=== PATIENT | female | born 1960 | race Caucasian/White ===

== ENCOUNTER 2016-11-01 14:32 | Emergency (ER) | payer MEDICAID ==
[~2016-11-01] VITALS: Ht 162.6 cm; Wt 81.8 kg
[~2016-11-01 14:32] MED LIST: HYDR-906 PO; LORA-441 PO; ONDA4TAB8 PO
[2016-11-01 14:40] VITALS: Ht 162.6 cm; Wt 81.8 kg
[2016-11-01] MEDS ORDERED: morphine 4 MG/ML VIAL IV STA (21:02)
[2016-11-01] MEDS ORDERED: DIPHENHYDRAMINE 50 MG INJ IV ONE (21:30)
[2016-11-01] MEDS ORDERED: SOD CHLORIDE 0.9% 500 ML IV ONE (21:30)
[2016-11-01] MEDS ORDERED: METOCLOPRAMIDE 10 MG INJ IV ONE (21:30)
[2016-11-01 22:52] VITALS: BP 95/66; PULSE 74; RESP 18
[2016-11-01] MEDS ORDERED: NAPR-688 PO (23:12)
[2016-11-01] MEDS ORDERED: HYDR-906 PO (23:12)
[2016-11-01] MEDS ORDERED: METH500T PO (23:12)
--- NOTE | 2016-11-01 23:29 | ERD ---
ER Documentation Chief Complaint Date/Time DATE: 11/01/16 TIME: 23:15 Chief Complaint CP RADIATING TO LEFT BACK X 1 WEEK WITH N/V HPI This 56-year-old female comes emergency room for left back spasm is been going on a week. States that sometimes the pain is so bad she has nausea but has not vomited. She denies chest pain. She speaks English only and believes that this may have been a language barrier in triage. She denies any constipation, diarrhea fevers chills or shortness of breath. States that she believes she woke up with left lower back pain that is made worse by moving and walking. Is also worse when she touches that spot and pushes on it. ROS All systems reviewed and are negative except as per history of present illness. Medications Home Meds Active Scripts Naproxen* (Naproxen*) 500 Mg Tablet, 500 MG PO BID, #20 TAB Prov:ALISHA SMITH DO 11/01/16 Methocarbamol* (Robaxin*) 500 Mg Tab, 500 MG PO Q8, #20 TAB Prov:ALISHA SMITH DO 11/01/16 Hydrocodone/Acetaminophen ([place] 5-325 Tablet) 1 Each Tablet, 1 EACH PO Q6, #10 TAB Prov:ALISHA SMITH DO 11/01/16 Ondansetron Hcl* (Zofran*) 4 Mg Tablet, 4 MG PO Q8H Y for NAUSEA AND/OR VOMITING , #30 TAB Prov:JARVIS BRYAN 10/11/15 Discontinued Scripts Hydrocodone/Acetaminophen ([place] 5-325 Tablet) 1 Each Tablet, 1 TAB PO Q6H Y for PAIN, #20 TAB Prov:CHRIS ANDREWS DO 06/15/16 Lorazepam* (Ativan*) 0.5 Mg Tablet, 0.5 MG PO Q8H Y for ANXIETY, #10 TAB Prov:JARVIS BRYAN 10/11/15 Allergies Allergies: Coded Allergies: No Known Allergy (Unverified , 11/01/16) PMhx/Soc History of Surgery: Yes (Left ankle surgery 30+ years ago) Anesthesia Reaction: No Hx Neurological Disorder: No Hx Respiratory Disorders: No Hx Cardiac Disorders: Yes (Occasional tachycardia) Hx Psychiatric Problems: No Hx Miscellaneous Medical Probl: No Hx Alcohol Use: No Hx Substance Use: No Hx Tobacco Use: No Smoking Status: Unknown if ever smoked Physical Exam Vitals Vital Signs Date Time Temp Pulse Resp B/P Pulse Ox O2 Delivery O2 Flow Rate FiO2 11/01/16 22:52 74 18 95/66 100 Room Air 11/01/16 16:38 81 16 100/57 98 11/01/16 14:40 98.8 65 20 106/70 98 Physical Exam Const: [] No distress Head: Atraumatic Eyes: Normal Conjunctiva ENT: Normal External Ears, Nose and Mouth. Neck: Full range of motion..~ No meningismus. Resp: Clear to auscultation bilaterally Cardio: Regular rate and rhythm, no murmurs Abd: Soft, non tender, non distended. Normal bowel sounds Skin: No petechiae or rashes Back: No midline or flank tenderness, right paraspinal muscle spasm with tenderness to palpation about the L1 level. Patient also has pain at this spot on side bending. Ext: No cyanosis, or edema Neur: Awake and alert and oriented 3, no focal deficits Psych: Normal Mood and Affect Results 24 hrs Current Medications Medications (Trade) Dose Ordered Sig/Venancio Route PRN Reason Start Time Stop Time Status Last Admin Dose Admin Metoclopramide HCl (Reglan) 10 mg ONCE ONCE IV 11/01/16 21:30 11/01/16 21:31 DC 11/01/16 21:26 Diphenhydramine HCl 12.5 mg 12.5 mg ONCE ONCE IV 11/01/16 21:30 11/01/16 21:31 DC 11/01/16 21:26 Sodium Chloride (NS) 500 ml @ 500 mls/hr Q1H ONCE IV 11/01/16 21:30 11/01/16 22:29 DC 11/01/16 21:26 Morphine Sulfate (morphine) 4 mg ONCE STAT IV 11/01/16 21:02 11/01/16 21:05 DC 11/01/16 21:26 Procedures/MDM EKG interpretation: Normal sinus rhythm rate of 81, normal axis, no ST or T- wave changes concerning for acute ischemia 56-year-old with left paraspinal back muscle spasm. Physical exam consistent with musculoskeletal disease with obvious muscle spasm with tenderness. Patient denies any systemic symptoms and chest pain. She also is a nonischemic EKG. She is given a pain medicine, muscle relaxant combo with Benadryl, Reglan, morphine. She is also given a liter of IV fluids. This resolved her pain she was feeling much better and was asymptomatic in the emergency room. She is going home with a friend. I am giving her strict return precautions ER as well as instructions to follow-up with primary care doctor the next 2-3 days. I am discharging her with [place], Robaxin, naproxen. Departure Diagnosis: Primary Impression: Spasm of muscle, back Condition: Stable Patient Instructions: Back Spasm, No Trauma Referrals: [facility] YOU HAVE RECEIVED A MEDICAL SCREENING EXAM AND THE RESULTS INDICATE THAT YOU DO NOT HAVE A CONDITION THAT REQUIRES URGENT TREATMENT IN THE EMERGENCY DEPARTMENT. FURTHER EVALUATION AND TREATMENT OF YOUR CONDITION CAN WAIT UNTIL YOU ARE SEEN IN YOUR DOCTORS OFFICE WITHIN THE NEXT 1-2 DAYS. IT IS YOUR RESPONSIBILITY TO MAKE AN APPOINTMENT FOR FOLOW-UP CARE. IF YOU HAVE A PRIMARY DOCTOR --you should call your primary doctor and schedule an appointment IF YOU DO NOT HAVE A PRIMARY DOCTOR YOU CAN CALL OUR PHYSICIAN REFERRAL HOTLINE AT IF YOU CAN NOT AFFORD TO SEE A PHYSICIAN YOU CAN CHOSE FROM THE FOLLOWING [facility] [address] [facility]. [facility] [address] [facility] [facility] [address] [facility] [facility] [address] [facility]. [facility] [address] [facility]. [facility]. [address] Additional Instructions: Llame al doctor MAANA y miah saif JEFF PARA DENTRO DE 2-3 CHOI.Dgale a la secretaria que nosotros le instruimos hacer esta jeff.Avise o llame si doran condicin se empeora antes de la jeff. Regresa aqui si peor o no mejor. ALISHA SMITH DO Nov 01, 2016 23:27
== END 2016-11-01 23:24 | disposition home or self-care (01) ==
LOC: E/R 14:32
DX: M62.830 Muscle spasm of back (principal); R42 Dizziness and giddiness; R40.2252 Coma scale, best verbal response, oriented, at arrival to emergency department; R40.2142 Coma scale, eyes open, spontaneous, at arrival to emergency department; R40.2362 Coma scale, best motor response, obeys commands, at arrival to emergency department
CPT/HCPCS: 93005; 96374; 96375; J1200; J2270; J2765; J7040; Z7502

== ENCOUNTER 2018-02-16 16:32 | Emergency (ER) | END 2018-02-16 18:04 | disposition home or self-care (01) ==

== ENCOUNTER 2018-12-14 00:16 | Inpatient (IN) | payer MEDICAID ==
[2018-12-14] VITALS (29 sets, daily range): BP systolic 90–138; BP diastolic 64–97; PULSE 58–73; RESP 10–24; Ht 167.6 cm; Wt 69.7 kg
[~2018-12-14] VITALS: Ht 167.6 cm; Wt 69.7 kg
[~2018-12-14 00:16] MED LIST changes: +HYDR-4011 PO; -HYDR-906 PO; -LORA-441 PO; +METH500T PO; +NAPR-688 PO; +PANT40TA3 PO
[2018-12-14] MEDS ORDERED: IODIXANOL LOCM 100 ML BTL ONE (00:53)
[2018-12-14] MEDS ORDERED: SOD CHLORIDE 0.9% 100 ML ONE (00:53)
--- NOTE | 2018-12-14 01:28 | STROKE ---
Date/Time of Note Date/Time of Note DATE: 12/14/18 TIME: 00:57 Patient Information General Arrival Date Age 58 Gender female Weight 71.1 kg Vital Signs Vital Signs Vital Signs Date Temp Pulse Resp B/P (MAP) Pulse Ox O2 O2 Flow FiO2 Time Delivery Rate 12/14/18 98.7 72 19 165/111 100 Room Air 00:52 (129) Patient History Current Medications Allergies: Coded Allergies: No Known Allergy (Unverified , 11/01/16) History & Physical History of Present Illness 58yo woman consulted for acute facial droop. Onset 1030pm. Left face felt hot, associated with feeling drunk, lips dry. Looked at herself in the mirror and felt left side was weak. NIH Stroke Scale NIH Stroke Scale [id number] l4d LOC Questions: Ljutg7g LOC Commands: Wpbpv4b t Gaze: Lhdfc1z Tjuas5q alsy: Rtcoo0h or Arm - Left: Uxmxg9r ight: Srvxf0i eft: Mgkji5z t: Ynukn0c Fubvl4k Fvuhw3i est Language: Mtpyt7y suki: Mauwa8l Jidba4y 4Bd Total Score: Lqzgg9h Date/Time Recorded DATE: 12/14/18 TIME: 01:15 Submitted By Vania Lopez t-PA Imaging Review Imaging Reviewed: Yes Date/Time Imaging Reviewed DATE: 12/14/18 TIME: 01:05 Imaging Findings no acute process, no bleed t-PA Administration Recommendation: Yes Weight 71.1 kg t-PA Recommendation Date/Time 12/14/18, 1:21am Recommedation submitted by Vania Lopez Recommendations Recommendation NIHSS 3. Possible stroke. Discussed option of iv tPA to patient, indication to break up blood clot in suspected stroke, benefit of reduced disability, and risk of bleeding, including bleeding in the brain leading to possible . Patient elected to receive tPA and was able to express the indication, benefit, and risk of the medication. Rec to reaffirm contraindications for tPA with patient. If no contraindications, rec to administer tPA and follow post tPA protocol, including BP control, no antithrombotics for 24 hours, and 24-hr surveillance scan. Rec further stroke eval including MRI head, vessel imaging, tele, TTE, eval/mgmt of stroke risk factors, PT/OT/ST, fluids to help with perfusion. VANIA LOPEZ Dec 14, 2018 01:11
[2018-12-14] MEDS ORDERED: ALTEPLASE 100 MG INJ IV* ONE (01:30)
[2018-12-14] MEDS ORDERED: SOD CHLORIDE 0.9% 50 ML IV ONE (01:30)
[2018-12-14] MEDS ORDERED: ALTEPLASE (tPA) 1 MG/ML BOLUS SYG IV* ONE (01:30)
[2018-12-14] MEDS ORDERED: ACETAMINOPHEN 325 MG TAB PO PRN (02:30)
[2018-12-14] MEDS ORDERED: ALBUTEROL/IPRATROPIUM (NEB) 3 ML AMP NEB PRN (02:30)
[2018-12-14] MEDS: PANTOPRAZOLE (EC) 40 MG TAB PO SCH (05:38)
--- NOTE | 2018-12-14 06:21 | HP ---
Date/Time of Note Date/Time of Note DATE: 12/13/18 TIME: 23:00 Assessment/Plan VTE Prophylaxis Pharmacological prophylaxis: NA/contraindicated Pharm contraindication: other (Patient status post TPA.) Lines/Catheters [facility] [place] [facility] Assessment/Plan Assessment/Plan 1. Acute CVA: Status post TPA -ICU admission -Follow post TPA protocol -MRI of the brain -2D echo -Speech/swallow as well as PT eval -Neurology consult -Initiate aspirin and statin following post TPA protocol 2. Dyslipidemia: -See #1 Result Diagram: 12/14/18 0048 12/14/18 0048 Results 24hrs Laboratory Tests Test 12/14/18 00:48 12/14/18 02:42 White Blood Count 8.9 Red Blood Count 4.07 L Hemoglobin 12.2 Hematocrit 37.9 Mean Corpuscular Volume 93.1 Mean Corpuscular Hemoglobin 30.0 Mean Corpuscular Hemoglobin Concent 32.2 Red Cell Distribution Width 13.3 Platelet Count 258 Mean Platelet Volume 10.8 H Immature Granulocytes % 0.200 Neutrophils % 62.3 Lymphocytes % 27.5 Monocytes % 7.4 Eosinophils % 2.2 Basophils % 0.4 Nucleated Red Blood Cells % 0.0 Immature Granulocytes # 0.020 Neutrophils # 5.6 Lymphocytes # 2.5 Monocytes # 0.7 Eosinophils # 0.2 Basophils # 0.0 Nucleated Red Blood Cells # 0.0 Prothrombin Time 12.2 Prothrombin Time Ratio 1.0 INR International Normalized Ratio 0.89 Activated Partial Thromboplast Time 29.4 Sodium Level 140 Potassium Level 3.5 Chloride Level 106 Carbon Dioxide Level 25 Anion Gap 9 Blood Urea Nitrogen 12 Creatinine 0.94 Est Glomerular Filtrat Rate mL/min > 60 Glucose Level 112 Hemoglobin A1c 5.1 Calcium Level 9.5 Creatine Kinase 124 Creatine Kinase Index 0.4 Creatinine Kinase MB (Mass) 0.53 Troponin I < 0.012 Triglycerides Level 162 H Cholesterol Level 280 H LDL Cholesterol, Calculated 187 HDL Cholesterol 61 Cholesterol/HDL Ratio 4.5 Ethyl Alcohol Level < 10.0 H Urine Color STRAW Urine Clarity CLEAR Urine pH 7.0 Urine Specific [place] 1.035 H Urine Ketones NEGATIVE Urine Nitrite NEGATIVE Urine Bilirubin NEGATIVE Urine Urobilinogen NEGATIVE Urine Leukocyte Esterase TRACE A Urine Microscopic RBC 0 Urine Microscopic WBC 2 Urine Hemoglobin 1+ H Urine Glucose NEGATIVE Urine Total Protein NEGATIVE Urine Opiates Screen Negative Urine Barbiturates Negative Urine Amphetamines Screen Negative Urine Benzodiazepines Screen Negative Urine Cocaine Screen Negative Urine Cannabinoids Negative HPI/ROS Admit Date/Time Admit Date/Time Dec 14, 2018 at 02:03 Hx of Present Illness This is a 58-year-old female with history of dyslipidemia, depression/anxiety who was brought to the ER for facial droop, unsteady gait and weakness. Patient is now status post TPA after evaluated by the telemetry neurologist. Head CT and CT Angio without acute findings. Vitals within acceptable range. PMH/Family/Social Past Medical History Medical History: other (See HPI) Medications Current Medications Albuterol/ Ipratropium (Duoneb) 3 ml Q2H RESP THERAPY PRN NEB SHORTNESS OF BREATH; Start 12/14/18 at 02:30 Acetaminophen (Tylenol Tab) 650 mg Q6H PRN PO PAIN LEVEL 1-3 OR FEVER; Start 12/14/18 at 02:30 Atorvastatin Calcium (Lipitor) 40 mg QHS PO ; Start 12/14/18 at 21:00 Docusate Sodium (Colace) 100 mg BID PO ; Start 12/14/18 at 09:00 Pantoprazole (Protonix Tab) 40 mg DAILY@0600 PO Last administered on 12/14/18at 05:38; Admin Dose 40 MG; Start 12/14/18 at 06:00 Coded Allergies: No Known Allergy (Unverified , 11/01/16) Past Surgical History Past Surgical Hx: other (See HPI) Family History Significant Family History: no pertinent family hx Social History Alcohol Use: none Smoking Status: Never smoker Drug Use: none Exam/Review of Systems Vital Signs Vitals Vital Signs Date Temp Pulse Resp B/P (MAP) Pulse Ox O2 O2 Flow FiO2 Time Delivery Rate 12/14/18 62 16 115/66 Room Air 05:30 (82) 12/14/18 97.8 100 03:22 Exam Constitutional: other (No acute distress) Head: normocephalic, atraumatic Eyes: PERRL Respiratory: clear to auscultation, normal air movement Cardiovascular: regular rate and rhythm, nl pulses Gastrointestinal: soft Extremities: normal pulses Neurological: other (Slow when answering questions) QIANA ENNIS MD Dec 14, 2018 06:20
[2018-12-14] MEDS: DOCUSATE SODIUM 100 MG CAP PO SCH ×2 (09:00→20:41)
--- NOTE | 2018-12-14 09:17 | CONS ---
Assessment/Plan Assessment/Plan Hospital Course 58 F w/o obvious cerebrovascular risk factors..who presents for evaluation of left facial weakness/sensory loss. She additionally notes mild left leg involvement, with resultant gait impairment... The clinical picture is most ominously concerning for acute stroke... she is, thus, s/p iv tpa on 12/13 late pm.. Durham's palsy w/ appendicular somatization is additionally considered.. CTA H/N neg LDL 187 UDS neg P: Await MRI brain to evaluate for acute ischemia CT head in late pm to exclude interval hemorrhage; may subsequently initiate asa ppx as necessary, if hemorrhage is excluded. Agree w/ Lipitor 80mg hs for now.. Await echocardiogram ESR, RPR in am PT/OT/ST as necessary Other management per primary Will follow clinically Consultation Date/Type/Reason Admit Date/Time Dec 14, 2018 at 02:03 Type of Consult Neurology Reason for Consultation L facial weakness, numbness Requesting Provider: SAUL PAPPAS Date/Time of Note DATE: 12/14/18 TIME: 09:17 Hx of Present Illness Hx of Present Illness This is a 58-year-old female with history of dyslipidemia, depression/anxiety who was brought to the ER for facial droop, unsteady gait and weakness that started around 10:30pm last night. On arrival to the ED, a code stroke was called, the pt was evaluated by teleneuro and a decision made for thrombolytics. TPA was given around 1:30am . The patient is now status post TPA.... Head CT and CT Angio without acute findings. Vitals within acceptable range. The pt continues to endorse L face weakness with eye involvement. She additionally noted L arm and leg weakness. negative unless otherwise noted in HPI Exam/Review of Systems Exam Vitals Vital Signs Date Temp Pulse Resp B/P (MAP) Pulse Ox O2 O2 Flow FiO2 Time Delivery Rate 12/14/18 68 18 128/66 Room Air 06:30 (86) 12/14/18 97.8 100 03:22 Exam PE: Gen Appearance: No Apparent Distress HEENT: Normocephalic Cardiovascular: Regular rate Lungs: Clear bilaterally Abdomen: Soft Extremities: Dry NE: The patient was alert and oriented. Language was normal. Fund of knowledge was normal. Pupils were equal and reactive to light. There was no afferent pupillary defect. Visual kevin were normal. Funduscopic examination was limited. Extra-ocular movements were full. Slight ptosis was present in the L eye. There was no nystagmus. Facial sensation was diminished on the L. Face was asymmetric with normal strength. Hearing was intact. Palate movements were normal. Neck strength was normal. There was normal tongue bulk and speed of movement. Tone was normal. Muscle bulk was normal. I did not see fasciculations. L arm and leg were mildly weak. L leg drift was noted. Vibration sensation was normal was diminished on the L. Temperature and pinprick sensation was normal. Rapid alternating movements were normal. There was no dysmetria. There was no intention tremor. Gait was deferred due to bedrest. Arm and leg reflexes were 2+ and symmetric. Ward's sign was absent. Plantar responses were flexor. Results Result Diagram: 12/14/18 0048 12/14/18 0048 Results 24hrs Laboratory Tests Test 12/14/18 00:48 12/14/18 02:42 White Blood Count 8.9 Red Blood Count 4.07 L Hemoglobin 12.2 Hematocrit 37.9 Mean Corpuscular Volume 93.1 Mean Corpuscular Hemoglobin 30.0 Mean Corpuscular Hemoglobin Concent 32.2 Red Cell Distribution Width 13.3 Platelet Count 258 Mean Platelet Volume 10.8 H Immature Granulocytes % 0.200 Neutrophils % 62.3 Lymphocytes % 27.5 Monocytes % 7.4 Eosinophils % 2.2 Basophils % 0.4 Nucleated Red Blood Cells % 0.0 Immature Granulocytes # 0.020 Neutrophils # 5.6 Lymphocytes # 2.5 Monocytes # 0.7 Eosinophils # 0.2 Basophils # 0.0 Nucleated Red Blood Cells # 0.0 Prothrombin Time 12.2 Prothrombin Time Ratio 1.0 INR International Normalized Ratio 0.89 Activated Partial Thromboplast Time 29.4 Sodium Level 140 Potassium Level 3.5 Chloride Level 106 Carbon Dioxide Level 25 Anion Gap 9 Blood Urea Nitrogen 12 Creatinine 0.94 Est Glomerular Filtrat Rate mL/min > 60 Glucose Level 112 Hemoglobin A1c 5.1 Calcium Level 9.5 Creatine Kinase 124 Creatine Kinase Index 0.4 Creatinine Kinase MB (Mass) 0.53 Troponin I < 0.012 Triglycerides Level 162 H Cholesterol Level 280 H LDL Cholesterol, Calculated 187 HDL Cholesterol 61 Cholesterol/HDL Ratio 4.5 Ethyl Alcohol Level < 10.0 H Urine Color STRAW Urine Clarity CLEAR Urine pH 7.0 Urine Specific [place] 1.035 H Urine Ketones NEGATIVE Urine Nitrite NEGATIVE Urine Bilirubin NEGATIVE Urine Urobilinogen NEGATIVE Urine Leukocyte Esterase TRACE A Urine Microscopic RBC 0 Urine Microscopic WBC 2 Urine Hemoglobin 1+ H Urine Glucose NEGATIVE Urine Total Protein NEGATIVE Urine Opiates Screen Negative Urine Barbiturates Negative Urine Amphetamines Screen Negative Urine Benzodiazepines Screen Negative Urine Cocaine Screen Negative Urine Cannabinoids Negative Medications Medication Current Medications Albuterol/ Ipratropium (Duoneb) 3 ml Q2H RESP THERAPY PRN NEB SHORTNESS OF BREATH; Start 12/14/18 at 02:30 Acetaminophen (Tylenol Tab) 650 mg Q6H PRN PO PAIN LEVEL 1-3 OR FEVER; Start 12/14/18 at 02:30 Docusate Sodium (Colace) 100 mg BID PO ; Start 12/14/18 at 09:00 Pantoprazole (Protonix Tab) 40 mg DAILY@0600 PO Last administered on 12/14/18at 05:38; Admin Dose 40 MG; Start 12/14/18 at 06:00 Atorvastatin Calcium (Lipitor) 80 mg QHS PO ; Start 12/14/18 at 21:00 Past Medical History reviewed Medical History: other (See HPI) Home Meds Active Scripts Pantoprazole* (Protonix*) 40 Mg Tablet.dr, 40 MG PO DAILY, #20 TAB Prov:PHILOMENA HERRON MD 02/16/18 Naproxen* (Naproxen*) 500 Mg Tablet, 500 MG PO BID, #20 TAB Prov:ALISHA SMITH DO 11/01/16 Methocarbamol* (Robaxin*) 500 Mg Tab, 500 MG PO Q8, #20 TAB Prov:ALISHA SMITH DO 11/01/16 Hydrocodone/Acetaminophen ([place] 5-325 Tablet) 1 Each Tablet, 1 EACH PO Q6, #10 TAB Prov:ALISHA SMITH DO 11/01/16 Ondansetron Hcl* (Zofran*) 4 Mg Tablet, 4 MG PO Q8H PRN for NAUSEA AND/OR V OMITING, #30 TAB Prov:JARVIS BRYAN 10/11/15 Medications Current Medications Albuterol/ Ipratropium (Duoneb) 3 ml Q2H RESP THERAPY PRN NEB SHORTNESS OF B REATH; Start 12/14/18 at 02:30 Acetaminophen (Tylenol Tab) 650 mg Q6H PRN PO PAIN LEVEL 1-3 OR FEVER; Start 12/14/18 at 02:30 Docusate Sodium (Colace) 100 mg BID PO ; Start 12/14/18 at 09:00 Pantoprazole (Protonix Tab) 40 mg DAILY@0600 PO Last administered on 12/14/18at 05:38; Admin Dose 40 MG; Start 12/14/18 at 06:00 Atorvastatin Calcium (Lipitor) 80 mg QHS PO ; Start 12/14/18 at 21:00 Allergies: Coded Allergies: No Known Allergy (Unverified , 11/01/16) Past Surgical History reviewed Past Surgical Hx: other (See HPI) Social History reviewed Alcohol Use: none Smoking Status: Never smoker Drug Use: none CALLI SMITH NP Dec 14, 2018 09:17 CHUN BRUNSON Dec 14, 2018 12:27
--- NOTE | 2018-12-14 09:21 | PN ---
Date/Time of Note Date/Time of Note DATE: 12/14/18 TIME: 09:21 Objective Vitals Vital Signs Date Temp Pulse Resp B/P (MAP) Pulse Ox O2 O2 Flow FiO2 Time Delivery Rate 12/14/18 68 18 128/66 Room Air 06:30 (86) 12/14/18 97.8 100 03:22 Results Result Diagram: 12/14/18 0048 12/14/18 0048 Medications Medications Current Medications Albuterol/ Ipratropium (Duoneb) 3 ml Q2H RESP THERAPY PRN NEB SHORTNESS OF BREATH; Start 12/14/18 at 02:30 Acetaminophen (Tylenol Tab) 650 mg Q6H PRN PO PAIN LEVEL 1-3 OR FEVER; Start 12/14/18 at 02:30 Docusate Sodium (Colace) 100 mg BID PO ; Start 12/14/18 at 09:00 Pantoprazole (Protonix Tab) 40 mg DAILY@0600 PO Last administered on 12/14/18at 05:38; Admin Dose 40 MG; Start 12/14/18 at 06:00 Atorvastatin Calcium (Lipitor) 80 mg QHS PO ; Start 12/14/18 at 21:00 Lines/Catheters IV Catheter Type: [place] in Place: No Assessment/Plan Hospital Course Subjective Patient still having some minor residual issues however significant improvement and doing well. Objective Physical exam General: Patient is laying in bed and answers questions appropriately Mentation: Patient is alert and oriented 4, Head: Normocephalic atraumatic Eyes: EOMI, pupils reactive to light Neck: Supple, nontender, midline Respiratory: Clear to auscultation bilaterally Cardiovascular: regular rate, no obvious murmurs Gastrointestinal: non-tender to palpation, bowel sounds heard. Neurological: Moves all extremities spontaneously, left upper and left lower extremity is mildly weaker when compared to the right. Patient still experiencing mild numbness on the left upper and lower extremity. Left eye droop is very mild, and also very mild numbness on the left face. Skin: No new skin lesions Assessment and plan Left upper extremity and lower extremity weakness and numbness, left facial numbness -Possible CVA, now status post TPA -Neurology on board -MRI and repeat CT pending -Monitor for 24 hours for worsening mentation -Aspirin and statin following post TPA protocol when okay -Keep SBP less than 180 Dyslipidemia -Statin History of depression -Patient on sertraline before however has not been taking it recently, reinitiate at discharge Disposition -ICU monitoring for at least 24 hours, if stable, downgrade tomorrow. SAUL PAPPAS Dec 14, 2018 09:21
[2018-12-14] MEDS ORDERED: hydrALAzine 20 MG INJ IV PRN (09:30)
--- NOTE | 2018-12-14 13:55 | RADRPT ---
Echocardiogram Report Patient Name: CARLEEN MCNEILPatient ID: [id number] : 1960 (58y 4m)Study Date: 12/14/2018 7:57:42 AM Gender: FAccession #: [id number] Tech: [facility] Location: Ref.Physician: QIANA ENNIS Height(Cm): 168 BSA: 1.82Weight(Kg): 70.8 Quality: AdequateAccount #: Procedures: Echocardiographic Report: Transthoracic echocardiogram with complete 2D, M-Mode, and doppler examination. Indications: Cerebrovascular Accident. Measurements: 2D/M Mode Doppler Measurement Value Normal Range Measurement Value Normal Range LVIDd 2D 5.2 [ 3.8 - 5.2 ] cm AV Peak Asher 1.1 [ 100.0 - 170.0 ] cm/se c LVIDs 2D 2.8 [ 2.2 - 3.5 ] cm AV Peak PG 5.0 [ 2.0 - 9.0 ] mmHg LVPWd 2D 0.8 [ 0.6 - 0.9 ] cm LVOT Peak Asher 0.9 [ 70.0 - 110.0 ] cm/sec IVSd 2D 1.0 [ 0.6 - 0.9 ] cm LVOT Peak PG 3.0 [ 2.0 - 6.0 ] mmHg AoR Diam 2D 3.5 [ 2.3 - 3.1 ] cm MV E Peak Asher 0.6 [ 60.0 - 130.0 ] cm/sec EDV 2D 131.0 [ 46.0 - 106.0 ] ml MV A Peak Asher 0.8 [ 100.0 - 120.0 ] cm/se c ESV 2D 30.9 [ 14.0 - 42.0 ] ml MV E/A 0.7 [ 0.8 - 1.5 ] ratio EF 2D 76.4 [ 54.0 - 74.0 ] percent MV PHT 70.0 [ 20.0 - 100.0 ] msec LA Dimen 2D 3.9 [ 2.7 - 3.8 ] cm MV Decel Time 240 [ 104 - 258 ] msec MV Decel Hardy 3 Lat E` Saher 0.1 [ 10.0 - 15.0 ] cm/sec Lateral E/E` 7.6 [ 1.0 - 2.0 ] ratio Med E` Asher 0.1 cm/sec MV E/A 0.7 [ 0.8 - 1.5 ] ratio MVA PHT 3.1 [ 2.0 - 4.0 ] cm2 PV Peak Asher 0.9 [ 40.0 - 80.0 ] cm/sec PV Peak PG 3.0 mmHg Findings: Left Ventricle: Normal left ventricular systolic function. Normal left ventricular cavity size. Normal left ventricular wall thickness. Ejection fraction is visually estimated at 65 %. Tissue Doppler/Mitral Doppler indices are consistent with impaired relaxation (Stage I diastolic dysfunction). E/E'= 8. Right Ventricle: Normal right ventricular size. Normal right ventricular systolic function. Left Atrium: The left atrium is normal in size. Right Atrium: The right atrium is normal in size. Atrial Septum: Normal atrial septum. Mitral Valve: Normal appearance and function of the mitral valve with trace physiologic regurgitation. Aortic Valve: No significant aortic stenosis or insufficiency. Normal trileaflet aortic valve structure. Tricuspid Valve: Normal appearance and function of the tricuspid valve with trace physiologic regurgitation. Pulmonic Valve: Normal pulmonic valve appearance. Pericardium: Normal pericardium with no significant pericardial effusion. Aorta: Normal aortic root. IVC: Normal size and normal respiratory collapse consistent with normal right atrial pressure. Pulmonary Artery: Normal pulmonary artery size. Conclusions: Normal left ventricular systolic function. Normal left ventricular cavity size. Normal left ventricular wall thickness. Ejection fraction is visually estimated at 65 %. Tissue Doppler/Mitral Doppler indices are consistent with impaired relaxation (Stage I diastolic dysfunction). Normal right ventricular size. Normal right ventricular systolic function. Normal appearance and function of the mitral valve with trace physiologic regurgitation. No significant aortic stenosis or insufficiency. Normal trileaflet aortic valve structure. Normal appearance and function of the tricuspid valve with trace physiologic regurgitation. Normal pericardium with no significant pericardial effusion. Electronically Signed By: Fabien Lackey 2018-12-14 13:54:32 PDT
[2018-12-14] MEDS: ATORVASTATIN 80 MG TAB PO SCH (20:41)
[2018-12-14] MEDS ORDERED: ATORVASTATIN 10 MG TAB PO SCH (21:00)
[2018-12-15] VITALS (10 sets, daily range): BP systolic 97–119; BP diastolic 53–68; PULSE 52–75; RESP 17–19
[2018-12-15] MEDS: PANTOPRAZOLE (EC) 40 MG TAB PO SCH (06:07)
[2018-12-15] MEDS: DOCUSATE SODIUM 100 MG CAP PO SCH ×2 (09:00→20:06)
--- NOTE | 2018-12-15 11:12 | CONS ---
Assessment/Plan Assessment/Plan Hospital Course 58 F w/o obvious cerebrovascular risk factors..who presents for evaluation of left facial weakness/sensory loss. She additionally notes mild left leg involvement, with resultant gait impairment... She is s/p TPA on 12/14. 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 MRI brain is reassuringly without acute intracranial pathology. CTA H/N neg LDL 187 UDS neg P: Start Valtrex 1g BID and prednisone 60mg daily Protonix for GI ppx while on prednisone PT/OT/ST as necessary Other management per primary Will follow clinically Consultation Date/Type/Reason Admit Date/Time Dec 14, 2018 at 02:03 Type of Consult Neurology Reason for Consultation L facial weakness, numbness Requesting Provider: SAUL PAPPAS Date/Time of Note DATE: 12/15/18 TIME: 11:12 24 HR Interval Summary Free Text/Dictation Continues acute care. S/p MRI. Pt still has c/o L facial weakness. Exam Vital Signs Vitals Vital Signs Date Temp Pulse Resp B/P (MAP) Pulse Ox O2 O2 Flow FiO2 Time Delivery Rate 12/15/18 57 08:00 12/15/18 97.8 19 119/66 96 07:39 (83) 12/14/18 Room Air 23:37 Intake and Output 12/14/18 12/14/18 12/15/18 1515:00 23:00 07:00 IntakeIntake Total 600 ml 200 ml BalanceBalance 600 ml 200 ml Exam PE: Gen Appearance: No Apparent Distress HEENT: Normocephalic Cardiovascular: Regular rate Lungs: Clear bilaterally Abdomen: Soft Extremities: Dry NE: The patient was alert and oriented. Language was normal. Fund of knowledge was normal. Pupils were equal and reactive to light. There was no afferent pupillary defect. Visual kevin were normal. Funduscopic examination was limited. Extra-ocular movements were full. Slight ptosis was present in the L eye. There was no nystagmus. Facial sensation was normal. Face was asymmetric with normal strength. Hearing was intact. Palate movements were normal. Neck strength was normal. There was normal tongue bulk and speed of movement. Tone was normal. Muscle bulk was normal. I did not see fasciculations. The pt was mildly weak in the LLE. Vibration sensation was normal was diminished on the L. Temperature and pinprick sensation was normal. Rapid alternating movements were normal. There was no dysmetria. There was no intention tremor. Gait was deferred due to bedrest. Arm and leg reflexes were 2+ and symmetric. Ward's sign was absent. Plantar responses were flexor. CALLI SMITH NP Dec 15, 2018 11:12 CHUN BRUNSON Dec 16, 2018 06:53
[2018-12-15] MEDS: predniSONE 20 MG TAB PO SCH (11:48)
[2018-12-15] MEDS: valACYclovir 500 MG TAB PO SCH ×2 (13:20→20:06)
--- NOTE | 2018-12-15 14:38 | PN ---
Date/Time of Note Date/Time of Note DATE: 12/15/18 TIME: 14:35 Objective Vitals Vital Signs Date Temp Pulse Resp B/P (MAP) Pulse Ox O2 O2 Flow FiO2 Time Delivery Rate 12/15/18 68 12:00 12/15/18 97.8 17 104/55 95 11:45 (71) 12/14/18 Room Air 23:37 Intake and Output 12/14/18 12/14/18 12/15/18 1515:00 23:00 07:00 IntakeIntake Total 600 ml 200 ml BalanceBalance 600 ml 200 ml Results Result Diagram: 12/15/1851612/15/18516 Medications Medications Current Medications Albuterol/ Ipratropium (Duoneb) 3 ml Q2H RESP THERAPY PRN NEB SHORTNESS OF BREATH; Start 12/14/18 at 02:30 Acetaminophen (Tylenol Tab) 650 mg Q6H PRN PO PAIN LEVEL 1-3 OR FEVER; Start 12/14/18 at 02:30 Docusate Sodium (Colace) 100 mg BID PO Last administered on 12/14/18at 20:41; Admin Dose 100 MG; Start 12/14/18 at 09:00 Pantoprazole (Protonix Tab) 40 mg DAILY@0600 PO Last administered on 12/15/18at 06:07; Admin Dose 40 MG; Start 12/14/18 at 06:00 Atorvastatin Calcium (Lipitor) 80 mg QHS PO Last administered on 12/14/18at 20:41; Admin Dose 80 MG; Start 12/14/18 at 21:00 Hydralazine HCl (Apresoline) 10 mg Q4H PRN IV sbp >160; Start 12/14/18 at 09:30 Valacyclovir HCl (Valtrex) 1,000 mg BID PO Last administered on 12/15/18at 13:20; Admin Dose 1,000 MG; Start 12/15/18 at 12:30 Prednisone (Prednisone) 60 mg DAILY PO Last administered on 12/15/18at 11:48; Admin Dose 60 MG; Start 12/15/18 at 11:30 VTE Prophylaxis Risk score (from Ns)>0 risk: 1 SCD applied (from Ns): No SCD contraindication: other Lines/Catheters IV Catheter Type: [place] in Place: No Assessment/Plan Hospital Course Subjective Patient still having some minor residual issues however significant improvement and doing well. Objective Physical exam General: Patient is laying in bed and answers questions appropriately Mentation: Patient is alert and oriented 4, Head: Normocephalic atraumatic Eyes: EOMI, pupils reactive to light, mild difficulty with closing the left eye Neck: Supple, nontender, midline Respiratory: Clear to auscultation bilaterally Cardiovascular: regular rate, no obvious murmurs Gastrointestinal: non-tender to palpation, bowel sounds heard. Neurological: Moves all extremities spontaneously, left upper and left lower extremity is mildly weaker when compared to the right. Patient still experiencing mild numbness on the left upper and lower extremity. Left eye droop is very mild, and also very mild numbness on the left face. 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
--- NOTE | 2018-12-15 16:54 | ERD ---
ER Documentation Chief Complaint Chief Complaint weakness, hesitant speech HPI The patient is a 58-year-old female, presenting to the ER because of slurred speech, generalized weakness. The history is limited due to language barrier, denies headache, blurred vision, neck pain, chest pain, dyspnea, abdominal pain, vomiting, dizzy, diarrhea. She does not smoke nor drink Past medical/surgical history: None ROS All systems reviewed and are negative except as per history of present illness. Medications Home Meds Active Scripts Pantoprazole* (Protonix*) 40 Mg Tablet.dr, 40 MG PO DAILY, #20 TAB Prov:PHILOMENA HERRON MD 02/16/18 Naproxen* (Naproxen*) 500 Mg Tablet, 500 MG PO BID, #20 TAB Prov:ALISHA SMITH DO 11/01/16 Methocarbamol* (Robaxin*) 500 Mg Tab, 500 MG PO Q8, #20 TAB Prov:ALISHA SMITH DO 11/01/16 Hydrocodone/Acetaminophen ([place] 5-325 Tablet) 1 Each Tablet, 1 EACH PO Q6, #10 TAB Prov:ALISHA SMITH DO 11/01/16 Ondansetron Hcl* (Zofran*) 4 Mg Tablet, 4 MG PO Q8H PRN for NAUSEA AND/OR VOMITING, #30 TAB Prov:JARVIS BRYAN 10/11/15 Allergies Allergies: Coded Allergies: No Known Allergy (Unverified , 11/01/16) PMhx/Soc History of Surgery: Yes (History of ankle surgery 10 years ago) Anesthesia Reaction: No Hx Neurological Disorder: No Hx Respiratory Disorders: No Hx Cardiac Disorders: No Hx Psychiatric Problems: No Hx Miscellaneous Medical Probl: Yes (See note) Hx Alcohol Use: Yes Hx Substance Use: No (former cocaine use) Hx Tobacco Use: No Smoking Status: Never smoker Physical Exam Vitals Vital Signs Date Temp Pulse Resp B/P (MAP) Pulse Ox O2 O2 Flow FiO2 Time Delivery Rate 12/14/18 64 18 127/78 98 01:51 (94) 12/14/18 64 18 127/78 98 Room Air 01:51 (94) 12/14/18 70 17 135/79 99 01:36 (97) 12/14/18 70 17 135/79 99 Room Air 01:36 (97) 12/14/18 65 16 133/77 100 Room Air 01:30 (95) 12/14/18 98.7 72 19 165/111 100 Room Air 00:52 (129) 12/14/18 98.7 70 19 135/77 100 00:47 (96) 12/14/18 Nasal 00:40 Cannula Physical Exam Const: No acute distress. Head: Atraumatic. Eyes: Normal Conjunctiva. ENT: Normal External Ears, Nose and Mouth. Neck: Full range of motion. No meningismus. Resp: Clear to auscultation bilaterally. Cardio: Regular rate and rhythm. Abd: Soft, non distended, normal bowel sounds, non tender. Skin: No petechiae or rashes. Back: No midline or flank tenderness. Ext: No cyanosis, or edema. Neur: Awake and alert. No focal deficit, ?slurred speech Psych: Normal Mood and Affect. Result Diagram: 12/15/1851612/15/18516 Results 24 hrs Laboratory Tests Test 12/14/18 00:48 White Blood Count 8.9 10^3/ul Red Blood Count 4.07 10^6/ul Hemoglobin 12.2 g/dl Hematocrit 37.9 % Mean Corpuscular Volume 93.1 fl Mean Corpuscular Hemoglobin 30.0 pg Mean Corpuscular Hemoglobin Concent 32.2 g/dl Red Cell Distribution Width 13.3 % Platelet Count 258 10^3/UL Mean Platelet Volume 10.8 fl Immature Granulocytes % 0.200 % Neutrophils % 62.3 % Lymphocytes % 27.5 % Monocytes % 7.4 % Eosinophils % 2.2 % Basophils % 0.4 % Nucleated Red Blood Cells % 0.0 /100WBC Immature Granulocytes # 0.020 10^3/ul Neutrophils # 5.6 10^3/ul Lymphocytes # 2.5 10^3/ul Monocytes # 0.7 10^3/ul Eosinophils # 0.2 10^3/ul Basophils # 0.0 10^3/ul Nucleated Red Blood Cells # 0.0 10^3/ul Prothrombin Time 12.2 Sec Prothrombin Time Ratio 1.0 INR International Normalized Ratio 0.89 Activated Partial Thromboplast Time 29.4 Sec Sodium Level 140 mmol/L Potassium Level 3.5 mmol/L Chloride Level 106 mmol/L Carbon Dioxide Level 25 mmol/L Anion Gap 9 Blood Urea Nitrogen 12 mg/dl Creatinine 0.94 mg/dl Est Glomerular Filtrat Rate mL/min > 60 mL/min Glucose Level 112 mg/dl Hemoglobin A1c 5.1 % Calcium Level 9.5 mg/dl Creatine Kinase 124 IU/L Creatine Kinase Index 0.4 Creatinine Kinase MB (Mass) 0.53 ng/ml Troponin I < 0.012 ng/ml Triglycerides Level 162 mg/dl Cholesterol Level 280 mg/dl LDL Cholesterol, Calculated 187 mg/dl HDL Cholesterol 61 mg/dl Cholesterol/HDL Ratio 4.5 RATIO Ethyl Alcohol Level < 10.0 mg/dl Current Medications Medications Dose Sig/Venancio Start Time Status Last (Trade) Ordered Route PRN Stop Time Admin Dose Reason Admin Alteplase, 6.4 mg BOLUS OVER 1 12/14/18 DC 12/14/18 Recombinant MIN ONCE 01:30 01:36 (Activase) IV* 12/14/18 01:31 Alteplase, 57.6 mg ISCHEMIC 12/14/18 DC 12/14/18 Recombinant STROKE ONCE 01:30 01:38 (Activase) IV* 12/14/18 01:31 Sodium 50 ml @ 0 FLUSH AFTER 12/14/18 DC 12/14/18 Chloride mls/hr TPA ONCE IV 01:30 02:39 12/14/18 01:31 Procedures/[place] [id number] Radiology Main Line: [phone] DIAGNOSTIC IMAGING REPORT Patient: CARLEEN MCNEIL : 1960 Age: 58 Sex: F MR #: [id number] DOS: 12/14/18 0049 Ordering MD: KAYE GILL MD Location: E/R Room/Bed: PROCEDURE: CT HEAD WITHOUT CONTRAST CLINICAL INDICATION: 58-year of age, female. Stroke Code TECHNIQUE: CT of the head was performed without IV contrast. Coronal and sagittal reformatted images were obtained from the axial source images. Images were reviewed on a high-resolution PACS workstation. DICOM images are available. Dose information: The estimated radiation dose (CTDIvol mGy) for each series in this exam is 40. The estimated cumulative dose (DLP mGy-cm) is 634. One or more of the following dose reduction techniques were used: - Automated exposure control. - Adjustment of the mA and/or kV according to patient size. - Use of iterative reconstruction technique. COMPARISON: None available. FINDINGS: BRAIN PARENCHYMA: Negative for evidence of acute intraparenchymal hemorrhage, mass effect or large territory infarct. Motley-white matter differentiation is maintained. Mild diffuse cerebral tissue loss. VENTRICLES AND EXTRA-AXIAL SPACES: Prominence of the ventricles proportionate to the sulci in keeping with cerebral tissue loss. Midline is central. Basal cisterns are normal. No abnormal extra-axial fluid collections are identified. Negative for evidence of acute subarachnoid or extra-axial hemorrhage. There are scattered calcifications in the sulci over the cerebral convexities likely from chronic infection. VASCULATURE: Negative for significant intracranial atherosclerosis. VISUALIZED PARANASAL SINUSES AND MASTOID AIR CELLS: Visualized paranasal sinuses: Clear where visualized. Mastoid air cells: Clear. BONES: No focal abnormality. SCALP: No significant abnormality. Additional comment: None. IMPRESSION: 1. Negative for evidence of acute intracranial hemorrhage or significant mass effect. Negative for CT evidence of acute large territory vascular infarct. If there is concern for recent ischemia, consider MRI brain for further evaluation. 2. Scattered calcifications in the sulci over the cerebral convexities is likely due to chronic infection. Findings were discussed with Dr Gill by Dr. Fidelina Whittington on December 14, 2018 at 1:06 am PST. RPTAT: HCTS Physician Dm Date Time Electronically viewed and signed by Alejandro Whittington Physician on 12/14/2018 01:06 CS/ CC: KAYE GILL MD [id number] [place] [id number] Radiology Main Line: [phone] DIAGNOSTIC IMAGING REPORT Patient: CARLEEN MCNEIL : 1960 Age: 58 Sex: F MR #: [id number] DOS: 12/14/18 0049 Ordering MD: KAYE GILL MD Location: E/R Room/Bed: PROCEDURE: Portable chest x-ray. CLINICAL INDICATION: 58 years of age, female. Possible stroke TECHNIQUE: Portable AP view of the chest. COMPARISON: None available. FINDINGS: Medical devices: None. Mediastinum: Cardiomediastinal contours are normal. Lungs: Lungs are clear. Pleura: Negative for pleural effusion or pneumothorax. Bones: No acute bony abnormality. Additional comment: None. IMPRESSION: Negative for evidence of an acute chest process. RPTAT: HCTS Physician Dm Date Time Electronically viewed and signed by Alejandro Whittington Physician on 12/14/2018 01:40 CS/ CC: KAYE GILL MD [id number] [place] [id number] Radiology Main Line: [phone] DIAGNOSTIC IMAGING REPORT Patient: CARLEEN MCNEIL : 1960 Age: 58 Sex: F MR #: [id number] DOS: 12/14/18 0049 Ordering MD: KAYE GILL MD Location: E/R Room/Bed: PROCEDURE: CT ANGIOGRAM HEAD AND NECK CLINICAL INDICATION: 58 years of age, female. Stroke symptoms. TECHNIQUE: Direct spiral 0.63 mm axial sections were obtained through the cervical and intracranial vasculature with the use of 98 mL of Visipaque 320. Coronal and sagittal reformatted images were obtained from the axial source images. Images were reviewed on a high-resolution PACS workstation. 3-D post processing was performed. Maximum intensity projection images were reconstructed on PACS. DICOM images are available. CTDIvol: 18 and 16 mGy. DLP: 596 mGy-cm. One or more of the following dose reduction techniques were used: - Automated exposure control. - Adjustment of the mA and/or kV according to patient size. - Use of iterative reconstruction technique. COMPARISON: Brain CT performed earlier on the same date FINDINGS: CTA NECK/ EXTRACRANIAL ANGIOGRAM: Proximal great vessels: Normal cervical branching. No flow-limiting stenosis or dissection. No aneurysm. Cervical vessels: Right carotid artery: No flow-limiting stenosis or dissection. No aneurysm. Left carotid artery: No flow-limiting stenosis or dissection. No aneurysm. Right vertebral artery: No flow-limiting stenosis or dissection. No aneurysm. Left vertebral artery: No flow-limiting stenosis or dissection. No aneurysm. Additional comment: None. CTA HEAD/ INTRACRANIAL ANGIOGRAM: Anterior circulation: Right: No flow-limiting stenosis or aneurysm is identified. No vascular malformation is identified. Left: No flow-limiting stenosis or aneurysm is identified. No vascular malformation is identified. Posterior circulation: No flow-limiting stenosis or aneurysm is identified. No vascular malformation is identified. [place]: Anterior communicating artery and right posterior communicating artery are patent. Left posterior communicating artery is not visualized. Dural venous sinuses: Patent. Additional comment: None. BRAIN (POST-CONTRAST): Enhancement: No abnormal intraparenchymal enhancement. SOFT TISSUE NECK: Soft tissues: Unremarkable. Lung apices: Unremarkable. Bones: Unremarkable. Additional comment: None. IMPRESSION: 1. Negative for evidence of hemodynamically significant stenosis or occlusion of the major cervical and intracranial arteries. 2. Negative for evidence of dissection, aneurysm, or vascular malformation. 3. Negative for abnormal intraparenchymal enhancement. If there is concern for recent ischemia, consider brain MRI for further evaluation. A call is in place to Dr Gill by Dr. Fidelina Whittington on December 14, 2018 at 1:40 am PST. Measurements of cervical internal carotid artery stenosis were performed according to NASCET criteria. Direct measurements of vessel diameters was made in reference to measurements of the distal internal carotid artery diameter. RPTAT: HCTS Physician Dm Date Time Electronically viewed and signed by Physician Dm on 12/14/2018 01:38 CS/ CC: KAYE GILL MD [id number] EKG: Read by emergency physician Rate/Rhythm: Normal Sinus Rhythm 66 beats/min QRS, ST, T-waves: No ST elevation, no T inversion, RWA Impression: Abnormal EKG MEDICAL MAKING DECISION: The patient is a 58-year-old female, presenting with possible acute stroke, evaluated by neurologist who recommended TPA The differential diagnoses considered include but are not limited to acute stroke, acute TIA, complex migraine Departure Diagnosis: Primary Impression: Stroke Condition: Critical Comments I discussed the findings with the patient. I discussed the patient with Dr Mallory at 2am , who was made aware of the lab, the treatment, the patient condition. The patient is admitted to icu Disclaimer: Inadvertent spelling and grammatical errors are likely due to EHR/dictation software use and do not reflect on the overall quality of patient care. Also, please note that the electronic time recorded on this note does not necessarily reflect the actual time of the patient encounter. KAYE GILL MD Dec 15, 2018 16:54
[2018-12-15] MEDS: ATORVASTATIN 80 MG TAB PO SCH (20:06)
[2018-12-15] MEDS ORDERED: ZOLPIDEM 5 MG TAB PO ONE (22:30)
[2018-12-16 00:18] VITALS: BP 98/55; PULSE 84; RESP 20
[2018-12-16 04:07] VITALS: BP 101/59; PULSE 65; RESP 18
[2018-12-16] MEDS: PANTOPRAZOLE (EC) 40 MG TAB PO SCH (05:55)
[2018-12-16 07:42] VITALS: BP 104/70; PULSE 88; RESP 20
[2018-12-16] MEDS: DOCUSATE SODIUM 100 MG CAP PO SCH (08:14)
[2018-12-16] MEDS: predniSONE 20 MG TAB PO SCH (08:14)
[2018-12-16] MEDS: valACYclovir 500 MG TAB PO SCH (08:28)
--- NOTE | 2018-12-16 10:10 | DS ---
Date/Time of Note Date/Time of Note DATE: 12/16/18 TIME: 10:10 Discharge Summary Admission/Discharge Info Admit Date/Time Dec 14, 2018 at 02:03 Discharge Date/Time Patient Condition: Stable Hospital Course Patient is a female with no significant past medical history except for history of depression who presents to [facility] for left-side d weakness and numbness and left facial numbness. Patient originally was code stroke was seen by tele-neurologist and given TPA for strokelike symptoms. Patient subsequently saw neurology in the inpatient setting. Patient had CT and MRI done both not showing signs of stroke, however patient did persist to have signs of Durham palsy. Neurology concluded that a acute CVA was very unlikely and patient likely suffered from Durham palsy with appendicular somatizations. They started prednisone as well as antiviral and did not recommend aspirin or statin on discharge. Of note patient's cholesterol was elevated on admission however with the cardiovascular risk calculator the 10-year risk calculated was 2.4%. According to this 10-year risk of heart disease or stroke, the [place] task force percentage is under 10% and does not suggest benefit from starting aspirin and the ACC AHA guidelines suggest that her risk of heart disease is less than 7.5% and suggests that she does not have any indication to be on a statin. However her since her LDL is elevated it was suggested that she modify her diet and increase the level of exercise and to follow-up with her primary care doctor within 2 weeks to get follow-up for her Durham palsy and to repeat her cholesterol levels within 2-3 months after significant changes to diet and exercise. Patient feeling well, was seen by PT, no DME needs, patient will be discharged with appropriate prescriptions. 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 Left-sided numbness, secondary to above Durham palsy, resolved Dyslipidemia History of depression, not on any medication Home Meds Active Scripts Pantoprazole* (Protonix*) 40 Mg Tablet., 40 MG PO DAILY, #20 TAB Prov:PHILOMENA HERRON MD 02/16/18 Naproxen* (Naproxen*) 500 Mg Tablet, 500 MG PO BID, #20 TAB Prov:ALISHA SMITH DO 11/01/16 Methocarbamol* (Robaxin*) 500 Mg Tab, 500 MG PO Q8, #20 TAB Prov:ALISHA SMITH DO 11/01/16 Hydrocodone/Acetaminophen ([place] 5-325 Tablet) 1 Each Tablet, 1 EACH PO Q6, #10 TAB Prov:ALISHA SMITH DO 11/01/16 Ondansetron Hcl* (Zofran*) 4 Mg Tablet, 4 MG PO Q8H PRN for NAUSEA AND/OR VOMITING, #30 TAB Prov:JARVIS BRYAN 10/11/15 Primary Care Provider Care Physician No Primary Time spent on discharge: > 30 minutes Pending Labs Laboratory Tests Test 12/16/18 04:54 White Blood Count 12.4 10^3/ul (4.8-10.8) Red Blood Count 3.94 10^6/ul (4.20-5.40) Hemoglobin 12.3 g/dl (12.0-16.0) Hematocrit 36.8 % (37.0-47.0) Mean Corpuscular Volume 93.4 fl (82.0-101.0) Mean Corpuscular Hemoglobin 31.2 pg (29.0-33.0) Mean Corpuscular Hemoglobin Concent 33.4 g/dl (32.0-37.0) Red Cell Distribution Width 13.2 % (11.5-14.5) Platelet Count 259 10^3/UL (140-415) Mean Platelet Volume 11.1 fl (7.4-10.4) Immature Granulocytes % 0.300 % (0.001-0.429) Neutrophils % 79.7 % (39.0-77.0) Lymphocytes % 14.4 % (15.0-51.0) Monocytes % 5.0 % (0.0-11.0) Eosinophils % 0.4 % (0.0-7.0) Basophils % 0.2 % (0.0-2.0) Nucleated Red Blood Cells % 0.0 /100WBC (0.0-0.0) Immature Granulocytes # 0.040 10^3/ul (0.0-0.031) Neutrophils # 9.9 10^3/ul (1.6-7.5) Lymphocytes # 1.8 10^3/ul (0.8-2.9) Monocytes # 0.6 10^3/ul (0.3-0.9) Eosinophils # 0.1 10^3/ul (0.0-0.5) Basophils # 0.0 10^3/ul (0.0-0.1) Nucleated Red Blood Cells # 0.0 10^3/ul (0.0-0.0) Sodium Level 140 mmol/L (135-144) Potassium Level 3.6 mmol/L (3.5-5.1) Chloride Level 105 mmol/L (97-110) Carbon Dioxide Level 24 mmol/L (21-31) Anion Gap 11 (5-13) Blood Urea Nitrogen 17 mg/dl (7-20) Creatinine 0.74 mg/dl (0.44-1.00) Est Glomerular Filtrat Rate mL/min > 60 mL/min (>60) Glucose Level 150 mg/dl (70-220) Calcium Level 9.7 mg/dl (8.4-10.2) Phosphorus Level 4.2 mg/dl (2.5-4.9) Magnesium Level 2.1 mg/dl (1.7-2.5) SAUL PAPPAS Dec 16, 2018 10:10
[2018-12-16] MEDS ORDERED: PANT40TA3 PO (10:19)
[2018-12-16] MEDS ORDERED: PRED20TA PO (10:19)
[2018-12-16] MEDS ORDERED: VALA500T PO (10:19)
--- NOTE | 2018-12-16 10:23 | PDOCDIS ---
Discharge Instructions CONDITION [id number] Patient Condition: [id number] Stable FOLLOW UP/APPOINTMENTS Follow-up Plan 1. Please follow up with your primary care doctor within 2 weeks 2. Please take all medications 3. Please return to the ED if you have your symptoms return. SAUL PAPPAS Dec 16, 2018 10:23
--- NOTE | 2018-12-16 11:20 | CONS ---
Assessment/Plan Assessment/Plan Hospital Course 58 F w/o obvious cerebrovascular risk factors..who presents for evaluation of left facial weakness/sensory loss. She additionally notes mild left leg involvement, with resultant gait impairment... She is s/p TPA on 12/14. 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 MRI brain is reassuringly without acute intracranial pathology. CTA H/N neg LDL 187 UDS neg P: Cont Valtrex and prednisone, with protonix for GI ppx, for a total of 10 days. Ok to hold ASA/Lipitor PT/OT/ST as necessary Other management per primary Will follow clinically Consultation Date/Type/Reason Admit Date/Time Dec 14, 2018 at 02:03 Type of Consult Neurology Reason for Consultation L facial weakness, numbness Requesting Provider: SAUL PAPPAS Date/Time of Note DATE: 12/16/18 TIME: 11:15 24 HR Interval Summary Free Text/Dictation Continues acute care. Pt endorses some improvement of her L eye weakness. Denies numbness/tingling in her face/body. Exam Vital Signs Vitals Vital Signs Date Temp Pulse Resp B/P (MAP) Pulse Ox O2 O2 Flow FiO2 Time Delivery Rate 12/16/18 97.4 88 20 104/70 98 07:42 (81) 12/14/18 Room Air 23:37 Intake and Output 12/15/18 12/15/18 12/16/18 1414:59 22:59 06:59 IntakeIntake Total 600 ml 1000 ml BalanceBalance 600 ml 1000 ml Exam PE: Gen Appearance: No Apparent Distress HEENT: Normocephalic Cardiovascular: Regular rate Lungs: Clear bilaterally Abdomen: Soft Extremities: Dry NE: The patient was alert and oriented. Language was normal. Fund of knowledge was normal. Pupils were equal and reactive to light. There was no afferent pupillary defect. Visual kevin were normal. Funduscopic examination was limited. Extra-ocular movements were full. Slight ptosis was present in the L eye. There was no nystagmus. Facial sensation was normal. Face was asymmetric with normal strength. Hearing was intact. Palate movements were normal. Neck strength was normal. There was normal tongue bulk and speed of movement. Tone was normal. Muscle bulk was normal. I did not see fasciculations. The pt was strong to confrontation. Vibration sensation was normal. Temperature and pinprick sensation was normal. Rapid alternating movements were normal. There was no dysmetria. There was no intention tremor. Gait was steady. Arm and leg reflexes were 2+ and symmetric. Ward's sign was absent. Plantar responses were flexor. CALLI SMITH NP Dec 16, 2018 11:20
[2018-12-16] MEDS ORDERED: ZOLPIDEM 5 MG TAB PO ONE (21:00)
== END 2018-12-16 14:20 | disposition home or self-care (01) | DRG 74 ==
LOC: E/R 00:16 → ICU 02:03 → 6WM 23:30 → 2NE 12-16 07:30
PROVIDERS: ADMIT Internal Medicine; ATTEND Internal Medicine
DX: G51.0 Bell's palsy (principal); G81.94 Hemiplegia, unspecified affecting left nondominant side; R20.0 Anesthesia of skin; R26.81 Unsteadiness on feet; E78.5 Hyperlipidemia, unspecified; F32.9 Major depressive disorder, single episode, unspecified; D72.829 Elevated white blood cell count, unspecified; T38.0X5A Adverse effect of glucocorticoids and synthetic analogues, initial encounter
CPT/HCPCS: 36415; 70450; 70496; 70498; 70551; 71045; 80048; 80061; 80307; 81001; 82550; 82553; 83036; 83735; 84100; 84484; 85025; 85610; 85651; 85730; 86592; 87081; 93005; 93306; 97161; 97166; J2997; J7512; Q9967